=== PATIENT | female | born 1945 | race Caucasian/White ===

== ENCOUNTER → 2018-04-15 14:13 | Outpatient (CLI) | payer MEDICARE, BC, SELFPAY ==
--- NOTE | 2018-04-15 14:25 | DI.RAD.S_ITS ---
PROCEDURE: XR TIBIA FIBULA RT 2V INDICATIONS: L proximal tib/fib pain s/p ground-level fall. TECHNIQUE: 2 views of the tibia and fibula were acquired. COMPARISON: None. FINDINGS: Bones: Proximal fibular fracture with butterfly fragment. No suspicious bony lesions. Soft tissues: No suspicious soft tissue calcifications or masses. IMPRESSION: Proximal fibular diaphyseal fracture. Dictated by: Gerardo Henry M.D. on 04/15/2018 at 15:48 Approved by: Gerardo Henry M.D. on 04/15/2018 at 15:50
== END ==
PROVIDERS: Visit Provider Physician Assistant
DX: S89.202A Unspecified physeal fracture of upper end of left fibula, initial encounter for closed fracture (principal); M79.662 Pain in left lower leg
CPT/HCPCS: 73590